=== PATIENT | male | born 1955 | race African-American/Black ===

== ENCOUNTER 2019-05-02 09:19 | Emergency (ER) | payer OTHER ==
[~2019-05-02] VITALS: Ht 185.4 cm; Wt 77.1 kg
[2019-05-02 10:49] VITALS: BP 124/68
== END 2019-05-02 10:50 | disposition home or self-care (01) ==
LOC: ER 09:19
DX: M25.511 Pain in right shoulder (principal); M25.512 Pain in left shoulder; R51 Headache; G89.11 Acute pain due to trauma; I10 Essential (primary) hypertension; E78.00 Pure hypercholesterolemia, unspecified; V43.52XA Car driver injured in collision with other type car in traffic accident, initial encounter; Y93.89 Activity, other specified; Y92.488 Other paved roadways as the place of occurrence of the external cause; Y99.8 Other external cause status